=== PATIENT | female | born 1945 | race Caucasian/White ===

== ENCOUNTER → 2023-08-27 10:42 | Outpatient (CLI) | payer OTHER, SELFPAY ==
--- NOTE | 2023-08-27 10:46 | DI.NM.S_ITS ---
PROCEDURE: NM BONE 3 PHASE RADIOPHARMACEUTICAL: 21.2 mCi Tc-99m MDP IV. INDICATIONS: Presence of left artificial knee joint TECHNIQUE: Multiple bone scintigrams were obtained after intravenous injection of Tc-99m MDP, including flow, blood pool, and delayed images centered to the region of interest. COMPARISON: None. FINDINGS: Periprosthetic uptake of radiotracer on the delayed phase. IMPRESSION: Periprosthetic uptake of radiotracer on the delayed phase, concerning for loosening. Dictated by: Jonathan Ceja M.D. on 08/27/2023 at 16:04 Approved by: Jonathan Ceja M.D. on 08/27/2023 at 16:05
[2023-08-27 12:07] LABS: Erythrocyte Sedimentation Rate 8 MM/HR (0-20)
[2023-08-27 12:24] LABS: C-Reactive Protein Quant < 0.5 mg/dL (<1.0)
== END ==
PROVIDERS: PCP Physician Assistant; Referring Provider Orthopaedic Surgery Adult Reconstructive Orthopaedic Surgery; Visit Provider Orthopaedic Surgery Adult Reconstructive Orthopaedic Surgery
DX: Z09 Encounter for follow-up examination after completed treatment for conditions other than malignant neoplasm (principal); Z96.652 Presence of left artificial knee joint; R79.82 Elevated C-reactive protein (CRP); R70.0 Elevated erythrocyte sedimentation rate
CPT/HCPCS: 36415; 78315; 85651; 86140; A9503